=== PATIENT | female | born 1980 | race Caucasian/White ===

== ENCOUNTER → 2017-09-08 | Emergency (ER) | payer OTHER, MEDICAID ==
[2017-09-09] MEDS: ONDANSETRON (ODT) 4 MG TAB ODT (03:13)
[2017-09-09] MEDS: HYDROCODONE/APAP (5/325) TAB PO (03:13)
== END | disposition home or self-care (01) ==
LOC: FTE 23:04
DX: R51 Headache (principal)
CPT/HCPCS: 99283